=== PATIENT | male | born 1985 | race Hispanic/Latino ===

== ENCOUNTER 2017-12-12 18:59 | Emergency (ER) | payer OTHER, SELFPAY ==
[~2017-12-12 18:59] MED LIST: ISOVUE-370 76%-LOCM 1 ML ONE; Iopamidol 370 76% 50 ML VIAL FS ONE
[2017-12-12 19:49] LABS: #Basophils 0.1 thou/uL (0.0-0.2); #Eosinphils 0.2 thou/uL (0.0-0.7); #Lymphocytes 2.3 thou/uL (1.20-3.40); #Monocytes 0.9 thou/uL (0.11-0.59); #Neutrophils 9.7 thou/uL (1.40-6.50); %Basophils 0.5 % (0.0-1.0); %Eosinophils 1.4 % (0.0-10.0); %Lymphocytes 17.4 % (21.0-51.0); %Monocytes 6.7 % (0.0-10.0); %Neutrophils 74.1 % (42.0-75.0); Hemoglobin 14.8 g/dL (14.0-18.0); Mean Corpuscular HGB CONC 33.7 g/dL (32.0-36.0); Mean Corpuscular Hemoglobin 30.2 pg (27.0-31.0); Mean Corpuscular Volume 89.5 fl (80.0-94.0); Mean Platelet Volume 6.7 fL (7.4-10.4); Platelet Count 337 thou/uL (130-400); RBC Distribution Width 11.8 % (11.5-14.5); Red Blood Cell (RBC) Count 4.89 mill/uL (4.70-6.10); White Blood Cell (WBC) Count 13.1 thou/uL (4.8-10.8)
[2017-12-12 20:02] LABS: Bilirubin Negative (Negative); Blood, Urine Negative (Negative); Clarity CLEAR (Clear); Glucose, Urine (Dipstick) Negative (Negative); Leukocyte Negative (Negative); Nitrite Negative (Negative); Protein, Urine (Dipstick) Trace mg/dL (Neg-Trace); Specific Gravity, Urine 1.031 (1.002-1.036); Urobilinogen 0.2 mg/dL (0.2-1.0)
[2017-12-12 20:11] LABS: ALT (SGPT) 25 U/L (8-55); AST (SGOT) 17 U/L (5-34); Albumin 4.4 g/dL (3.5-5.0); Alkaline Phosphatase 94 U/L (40-150); Anion Gap 15 mmol/L (10-20); BUN (Urea Nitrogen) 18 mg/dL (8.9-20.6); Bilirubin, Total 0.4 mg/dL (0.2-1.2); Calc. Creatinine Clearance 0 mL/min (70-130); Calcium 9.4 mg/dL (7.8-10.44); Carbon Dioxide 24 mmol/L (22-29); Chloride 102 mmol/L (98-107); Estimated GFR-MDRD Greater than 90; Globulin 3.1 g/dL (2.4-3.5); Glucose 145 mg/dL (70-105); Potassium 3.5 mmol/L (3.5-5.1); Protein, Total 7.5 g/dL (6.0-8.3); Sodium 137 mmol/L (136-145)
[2017-12-12] MEDS ORDERED: HYDROcodone/Acetaminophen 5/325 mg Tablet ONE (21:32)
--- NOTE | 2017-12-12 23:37 | CT ---
ABDOMEN AND PELVIC CT SCAN WITH IV CONTRAST: 12/12/17 HISTORY: 32-year-old male with history of left lower quadrant and suprapubic pain. The lung bases are clears. The liver, gallbladder, pancreas, spleen, and adrenal glands are unremarka ble. No renal calculi or acute obstruction. Normal appearing appendix. There is some prominent foc al colonic wall thickening of the left colon with pericolonic fat stranding and minimal fluid in the left colonic gutter, evidence for acute diverticulitis. There is scattered sigmoid colon diverticulos is. No evidence for drainable abscess. No free intraperitoneal air. Comparison is made to a prior 10/07/16 study. The changes of acute diverticulitis in the sigmoid colon seen at that time have resolved. IMPRESSION: Evidence for acute left colon diverticulitis with considerable colonic wall thickening and pericoloni c fat stranding. No evidence for free intraperitoneal air or drainable abscess. Consider followup end oscopy after resolution of the acute diverticulitis symptoms of this region because of the colonic wa ll thickening is suggested. POS: KENNETH
== END 2017-12-13 00:21 | disposition home or self-care (01) ==
LOC: ERS 18:59
DX: K57.32 Diverticulitis of large intestine without perforation or abscess without bleeding (principal); F17.210 Nicotine dependence, cigarettes, uncomplicated; Z71.6 Tobacco abuse counseling
CPT/HCPCS: 36415; 74177; 80053; 81003; 85025; 99406

== ENCOUNTER 2018-01-29 05:49 | Day surgery (SDC) | payer OTHER ==
[2018-01-28 12:21] VITALS: BMI 34.1
--- NOTE | 2018-01-29 01:39 | HP ---
SHORT-STAY HISTORY AND PHYSICAL DATE OF ADMISSION: 01/28/2018 HISTORY OF PRESENT ILLNESS: This is a 33-year-old male with abdominal pain with of diverticuli tis. This happened approximately 6 weeks ago. He has been treated with antibiotics. The patient huitron s had previous episodes of diverticulitis. The patient's . The patient comes for colonoscopy b ecause of recurrent diverticulitis over the last probably about 18 months. ALLERGIES: None. SOCIAL HISTORY: The patient drinks socially. Smokes cigarettes when he drinks alcohol. MEDICAL ILLNESSES: Recurrent diverticulitis. PHYSICAL EXAMINATION: VITAL SIGNS: Pulse is 70, blood pressure 130/80. HEENT: Conjunctivae clear. CARDIOVASCULAR SYSTEM: Within normal limits. LUNGS: Within normal limits. ABDOMEN: Soft to palpate. No organomegaly. No tenderness. No masses. ADMITTING DIAGNOSIS: Recurrent diverticulitis. PLAN: Colonoscopy.
--- NOTE | 2018-01-29 09:49 | OP ---
DATE OF PROCEDURE: 01/29/2018 SURGEON: Bell Albarado M.D. OPERATIVE PROCEDURE: Colonoscopy. PREOPERATIVE DIAGNOSIS: A 33-year-old male with recurrent diverticulitis. The patien t had a contained perforation with bleeding diverticulitis in September 2016. He was seen by Dr. Raul Sun and was recommended colonoscopy before possible sigmoid resection. The patient had episode of diverticulitis in 12/2017. The patient has taken antibiotics. At the present time, he is asympto matic. The patient undergoing a colonoscopy. POSTOPERATIVE DIAGNOSES: 1. Scattered sigmoid diverticular disease with occasional diverticular disease descending colon area . 2. Otherwise, normal colonoscopy. PROCEDURE IN DETAIL: The patient was placed on his left lateral position and was given sedation by A nesthesia Department. A rectal exam was done before the scope was advanced in the rectum. No lesion felt on rectal exam. A [employer]ax video colonoscope was introduced into the rectum and advanced all the way to the cecum. The appendiceal orifice, ileocecal valve, cecum, no pathology seen. The ascendin g colon, hepatic flexure, transverse colon, splenic flexure, no pathology seen. The descending colon showed occasional diverticular disease. The sigmoid colon showed scattered diverticulosis. Rectum showed no pathology. DISCHARGE PLANNING: This is a 33-year-old male who comes for colonoscopy. The colono scopy showed scattered sigmoid diverticulosis. DISCHARGE RECOMMENDATIONS: 1. High-fiber diet. 2. Metamucil once a day. 3. Patient to go back to see Dr. Raul Sun for possible sigmoid colectomy.
== END 2018-01-29 09:25 | disposition home or self-care (01) ==
LOC: SDC 05:49
PROVIDERS: ATTEND Internal Medicine Gastroenterology
PROC: 0DJD8ZZ Inspection of Lower Intestinal Tract, Via Natural or Artificial Opening Endoscopic (ICD-10-PCS; principal; 2018-01-29)
DX: K57.30 Diverticulosis of large intestine without perforation or abscess without bleeding (principal); F17.210 Nicotine dependence, cigarettes, uncomplicated

== ENCOUNTER 2018-11-18 23:50 | Emergency (ER) | payer OTHER, SELFPAY ==
--- NOTE | 2018-11-19 07:11 | RAD ---
CHEST TWO VIEWS: HISTORY: Cough. COMPARISON: None. FINDINGS: Two views of the chest show normal sized cardiomediastinal silhouette. There is no evidence of consol idation, mass, or pleural effusion. The bones are unremarkable. IMPRESSION: No evidence of acute cardiopulmonary disease. POS: C
== END 2018-11-19 01:14 | disposition home or self-care (01) ==
LOC: SCSER 23:50
DX: J06.9 Acute upper respiratory infection, unspecified (principal); F17.210 Nicotine dependence, cigarettes, uncomplicated
CPT/HCPCS: 71046; 93005; 94640; J7620

== ENCOUNTER 2018-12-25 14:46 | Outpatient (CLI) | payer OTHER | END 2018-12-25 14:47 | disposition home or self-care (01) | LOC: CTENTCT 14:46 | PROVIDERS: ATTEND Otolaryngology Plastic Surgery within the Head & Neck | DX: J34.2 Deviated nasal septum (principal) | CPT/HCPCS: 70486 ==

== ENCOUNTER 2019-01-07 07:02 | Day surgery (SDC) | payer OTHER ==
[2019-01-06 15:21] VITALS: BMI 31.3
[2019-01-07] MEDS ORDERED: Fentanyl 250 MCG/5 ML VIAL ONE (07:11)
[2019-01-07] MEDS ORDERED: Midazolam HCl 2 mg/2 ml Vial ONE (07:11)
[2019-01-07] MEDS ORDERED: Oxymetazoline HCl 0.05% ( 15 ML ) ONE (07:58)
[2019-01-07] MEDS ORDERED: Lidocaine 1% w/Epinephrine 1:100K 20 ML VIAL ONE (08:26)
[2019-01-07] MEDS ORDERED: Bacitracin Zinc Ointment 30 gm TUBE ONE (08:54)
[2019-01-07] MEDS ORDERED: Rocuronium Bromide 10 MG/ML (10ML VIAL) ONE (13:06)
[2019-01-07] MEDS ORDERED: Ketorolac Tromethamine 30 MG/ML VIAL ONE (13:06)
[2019-01-07] MEDS ORDERED: Succinylcholine Chloride 20 MG/ML 10 ml SYRINGE FS ONE (13:06)
[2019-01-07] MEDS ORDERED: Ondansetron PF 4 MG/2 ML Vial ONE (13:06)
[2019-01-07] MEDS ORDERED: Dexamethasone 20 MG/5 ML VIAL ONE (13:06)
[2019-01-07] MEDS ORDERED: Lidocaine 1% PF 5 ML VIAL ONE (13:06)
[2019-01-07] MEDS ORDERED: PROPOFOL 200 MG/20 ML VIAL ONE (13:06)
--- NOTE | 2019-01-08 07:53 | OP ---
DATE OF PROCEDURE: 01/07/2019 PREOPERATIVE DIAGNOSES: 1. Chronic rhinosinusitis. 2. Nasal septal deviation. 3. Bilateral inferior turbinate hypertrophy. 4. Nasal obstruction. 5. Closed nasal fracture. ESTIMATED BLOOD LOSS: 100 mL. COMPLICATIONS: None. ANESTHESIA: GETA. PROCEDURES PERFORMED: 1. Bilateral endoscopic sinus surgery, total ethmoidectomies. 2. Bilateral endoscopic sinus surgery, maxillary antrostomies. 3. Bilateral endoscopic sinus surgery, frontal sinusotomies. 4. Nasal septoplasty. 5. Bilateral inferior turbinate submucosal resection. 6. Closed reduction of nasal fracture bilaterally. DESCRIPTION OF PROCEDURE: Patient was taken to the operating room and placed supine on the table. General endotracheal anesthesia was obtained by the anesthesia staff. Tube was secured in the left lower lip. Patient was then placed in the beach chair position, and Afrin pledgets were placed in the nasal cavity. Injections of 1% lidocaine with 1:100,000 epinephrine were made into the nasal septum as well as the inferior turbinates. Patient was then prepped and draped in standard surgical fashion for nasal surgery. Following this, the Afrin pledgets were removed. A [place] incision was made on the left nasal septum. Submucoperichondrial dissection was performed. The deviated portions of the septum included portions of the cartilage and the bony septum. These isolated areas were removed using 3 cutting rongeurs. There was noted to be a large dorsal and caudal strut, left intact for support of the nose. The mucoperichondrial flaps were then reapproximated using a 4-0 gut stitch. Any straight pieces of cartilage were crushed prior to this and placed between the mucoperichondrial flaps. Following this, the inferior turbinates were then punctured with a submucosal coblation wand, and submucosal coblations were performed of multiple areas of the inferior portion of the anterior inferior turbinate. Following this, middle turbinates were gently medialized using the [place] elevator. The uncinate process was identified and was anteriorly fractured using a ball-ended probe. Following this, the uncinate process was then removed using the microdebrider and up-biting [place] forceps bilaterally. Following this, the natural maxillary sinus ostium was identified and was gently widened using the ball-ended probe and the curved microdebrider along with the straight [place] forceps. Following this, the ethmoidal bulla was identified and was punctured on its medial and inferior aspects with the microdebrider and was removed using the microdebrider and the up-biting [place] forceps. Following this, the grand lamella was identified and was punctured into the posterior ethmoidal cells with the blunt-tip microdebrider. Working from posterior to anterior, the ethmoidal cells were opened in a mucosal sparing technique. Following this, 45-degree endoscope along with the curved microdebrider was used to further open the frontal recess cells and open the frontal sinus ostia bilaterally. The right frontal sinus was noted to be hypoplastic and was opened using the microdebrider to open the frontal sinus ostia. Following this, medial osteotomies were created using a transcartilaginous incision with a 4 mm straight osteotome. Lateral osteotomies were created in a similar fashion. The nasal bones were fully mobilized, and the left nasal bone was elevated and replaced to its normal anatomic position. The right nasal bone was mobilized, therefore widening the nasal passage and nasal vault. The patient tolerated the procedure well. [place] splints were placed and secured. A [place] splint was placed externally. Job ID: [id number]
== END 2019-01-07 11:53 | disposition home or self-care (01) ==
LOC: SDC 07:02
PROVIDERS: ATTEND Otolaryngology Plastic Surgery within the Head & Neck
PROC: 099S8ZZ Drainage of Right Frontal Sinus, Via Natural or Artificial Opening Endoscopic (ICD-10-PCS; principal; 2019-01-07)
PROC: 099T8ZZ Drainage of Left Frontal Sinus, Via Natural or Artificial Opening Endoscopic (ICD-10-PCS; principal; 2019-01-07)
PROC: 09TL7ZZ Resection of Nasal Turbinate, Via Natural or Artificial Opening (ICD-10-PCS; principal; 2019-01-07)
PROC: 0NSBXZZ Reposition Nasal Bone, External Approach (ICD-10-PCS; principal; 2019-01-07)
PROC: 09SM0ZZ Reposition Nasal Septum, Open Approach (ICD-10-PCS; principal; 2019-01-07)
PROC: 099R8ZZ Drainage of Left Maxillary Sinus, Via Natural or Artificial Opening Endoscopic (ICD-10-PCS; principal; 2019-01-07)
PROC: 099Q8ZZ Drainage of Right Maxillary Sinus, Via Natural or Artificial Opening Endoscopic (ICD-10-PCS; principal; 2019-01-07)
PROC: 09TU8ZZ Resection of Right Ethmoid Sinus, Via Natural or Artificial Opening Endoscopic (ICD-10-PCS; principal; 2019-01-07)
PROC: 09TV8ZZ Resection of Left Ethmoid Sinus, Via Natural or Artificial Opening Endoscopic (ICD-10-PCS; principal; 2019-01-07)
DX: J32.8 Other chronic sinusitis (principal); J34.2 Deviated nasal septum; J34.3 Hypertrophy of nasal turbinates; J35.1 Hypertrophy of tonsils; J34.89 Other specified disorders of nose and nasal sinuses; S02.2XXA Fracture of nasal bones, initial encounter for closed fracture
CPT/HCPCS: J0131; J2001; J2250; J3010